=== PATIENT | female | born 1960 | race African-American/Black ===

== ENCOUNTER 2016-09-07 14:05 | Emergency (ER) | payer OTHER ==
--- NOTE | 2016-09-07 14:22 | ED Physician Documentation ---
General Adult - HISTORIAN Historian: patient - HPI Chief Complaint: General Adult Further Comments: yes (Yesenia has been having some behavioral issues today, has been incontinence, has complained of some abd pain, has had a low grade fever. has not been eating as well. Has a history of UTI in the past.) - ROS CONST: no problems. denies: fever, chills - PAST HX Past History: none, hypertension, other (ADHD, epilepsy, constipation, MR) Allergies/Adverse Reactions: Allergies Allergy/AdvReac Type Severity Reaction Status Date / Time No Known Allergies Allergy Verified 09/07/16 14:43 Home Medications: Ambulatory Orders Medication Instructions Recorded Dextrose/Dextrin/Maltose 09/07/16 [Insta-Glucose] Divalproex Sodium [Depakote ER] 500 mg PO BID 09/07/16 Docusate Sodium [Colace] 200 mg PO DAILY 09/07/16 Linaclotide [Linzess] 09/07/16 Magnesium Hydroxide [Milk of 2,400 mg PO BID 09/07/16 Magnesia] Metformin HCl [Glucophage] 500 mg PO BID 09/07/16 Polyethylene Glycol 3350 [Miralax] 17 gm PO BID 09/07/16 Quetiapine Fumarate [Seroquel] 400 mg PO BID 09/07/16 Risperidone [Risperdal] 2 mg PO BID 09/07/16 Topiramate [Topamax] 50 mg PO BID 09/07/16 - SOCIAL HX Smoking History: non-smoker Alcohol Use: none Drug Use: none - FAMILY HX Family History: No - VITAL SIGNS Vital Signs: Vital Signs Temp Pulse Resp BP Pulse Ox 43/20 11/30/14 20:30 - REVIEWED ASSESSMENTS Nursing Assessment Reviewed: Yes Vitals Reviewed: Yes ED Results Lab/Radiology - Orders Orders: ED Orders Category Date Time Status CBC/PLATELET/DIFF Routine Lab 09/07/16 Ordered CMP Routine Lab 09/07/16 Ordered URINALYSIS Routine Lab 09/07/16 Uncollected General Adult Physical Exam - PHYSICAL EXAM GENERAL APPEARANCE: no distress EENT: ENT inspection normal, no signs of dehydration RESPIRATORY: no resp distress, chest non-tender, breath sounds normal. No: wheezes, rales, rhonchi CVS: reg rate & rhythm, heart sounds normal, equal pulses, no gallop ABDOMEN: soft, no organomegaly, normal bowel sounds, no distension, non-tender. No: rebound, guarding SKIN: warm/dry EXTREMITIES: non-tender NEURO: mood/affect nml (at baseline per caregiver) Discharge Clincal Impression: Viral gastroenteritis Additional Instructions: Give patient diet as tolerated. IWatch for fever or chills. If symptoms do not improve to follow-up with primary care provider or return to ED. Home Medications: Ambulatory Orders Dextrose/Dextrin/Maltose [Insta-Glucose] 09/07/16 Divalproex Sodium [Depakote ER] 500 mg PO BID 09/07/16 Docusate Sodium [Colace] 200 mg PO DAILY 09/07/16 Linaclotide [Linzess] 09/07/16 Magnesium Hydroxide [Milk of Magnesia] 2,400 mg PO BID 09/07/16 Metformin HCl [Glucophage] 500 mg PO BID 09/07/16 Polyethylene Glycol 3350 [Miralax] 17 gm PO BID 09/07/16 Quetiapine Fumarate [Seroquel] 400 mg PO BID 09/07/16 Risperidone [Risperdal] 2 mg PO BID 09/07/16 Topiramate [Topamax] 50 mg PO BID 09/07/16 Condition: Stable Disposition: 01 HOME, SELF-CARE Decision to Admit: NO Date of Decison to Admit: 09/07/16 Decision Time: 15:42
[2016-09-07 14:29] VITALS: BP 100/79
[2016-09-07 15:06] LABS: BASOPHILS % 0.1 (0.0-1.5); EOSINOPHILS % 1.1 % (0.0-6.8); LYMPHOCYTES # 0.6 # k/uL (0.6-4.0); MONOCYTES # 0.9 # k/uL (0.0-0.9); MONOCYTES % 9.9 % (0.0-11.0)
[2016-09-07 15:25] LABS: eGFR (African) > 60; eGFR (Non-African) > 60
[2016-09-08 06:00] LABS: APPEARANCE,URINE CLEAR (CLEAR); COLOR,URINE YELLOW (YELLOW); OCCULT BLOOD,URINE NEGATIVE (NEGATIVE); UROBILINOGEN URINE 0.2 Eu (0.2-1.0)
== END 2016-09-07 16:05 | disposition home or self-care (01) ==
LOC: ED 14:05
DX: A08.4 Viral intestinal infection, unspecified (principal)
CPT/HCPCS: 80053; 81002; 82150; 85025; 99283

== ENCOUNTER 2016-11-17 07:39 | Outpatient (CLI) | payer OTHER ==
[2016-11-17 07:59] LABS: BASOPHILS % 0.2 (0.0-1.5); EOSINOPHILS % 0.9 % (0.0-6.8); MEAN CORPUSCULAR HEMOGLOBIN 31.9 pg (28.0-34.0); MEAN CORPUSCULAR VOLUME 96.1 fl (80.0-100.0); NEUTROPHILS # 2.2 # k/uL (1.4-7.7)
[2016-11-17 08:31] LABS: eGFR (African) > 60; eGFR (Non-African) > 60
[2016-11-18 08:52] LABS: APPEARANCE,URINE CLEAR (CLEAR); COLOR,URINE YELLOW (YELLOW); OCCULT BLOOD,URINE NEGATIVE (NEGATIVE); PH URINE 7.5 (5.0 - 8.0); UROBILINOGEN URINE 0.2 Eu (0.2-1.0)
== END 2016-11-17 07:40 ==
LOC: LAB 07:39
PROVIDERS: ATTEND Nurse Practitioner Family
DX: G40.909 Epilepsy, unspecified, not intractable, without status epilepticus (principal); I10 Essential (primary) hypertension; E11.65 Type 2 diabetes mellitus with hyperglycemia
CPT/HCPCS: 36415; 80053; 80164; 81002; 82043; 83036; 85025

== ENCOUNTER 2016-12-31 14:09 | Outpatient (CLI) | payer OTHER | END 2016-12-31 14:10 | LOC: POD 14:09 | PROVIDERS: ATTEND Podiatrist | DX: B35.1 Tinea unguium (principal); M79.674 Pain in right toe(s); M79.675 Pain in left toe(s) | CPT/HCPCS: 11721; G0463 ==

== ENCOUNTER 2017-02-16 07:40 | Outpatient (CLI) | payer OTHER | END 2017-02-16 07:42 | LOC: LAB 07:40 | PROVIDERS: ATTEND Psychiatry & Neurology Psychiatry | DX: F25.1 Schizoaffective disorder, depressive type (principal) | CPT/HCPCS: 36415; 80164 ==

== ENCOUNTER 2017-03-23 07:30 | Outpatient (CLI) | payer OTHER ==
[2017-03-23 07:23] LABS: BASOPHILS % 0.3 (0.0-1.5); EOSINOPHILS % 2.6 % (0.0-6.8); MEAN CORPUSCULAR HEMOGLOBIN 32.2 pg (28.0-34.0); MEAN CORPUSCULAR VOLUME 92.1 fl (80.0-100.0); MONOCYTES % 7.4 % (0.0-11.0); NEUTROPHILS # 2.1 # k/uL (1.4-7.7)
[2017-03-23 07:52] LABS: eGFR (African) > 60; eGFR (Non-African) > 60
[2017-03-23 15:15] LABS: APPEARANCE,URINE Clear (CLEAR); COLOR,URINE Yellow (YELLOW); OCCULT BLOOD,URINE Negative (NEGATIVE); PH URINE 6.5 (5.0 - 8.0); UROBILINOGEN URINE 0.2 Eu (0.2-1.0)
[2017-03-23 15:26] LABS: AMORPHOUS SEDIMENT,UR FEW (NEGATIVE)
== END 2017-03-23 07:32 ==
LOC: LAB 07:30
PROVIDERS: ATTEND Nurse Practitioner Family
DX: E78.2 Mixed hyperlipidemia (principal); E11.65 Type 2 diabetes mellitus with hyperglycemia; I10 Essential (primary) hypertension; G40.409 Other generalized epilepsy and epileptic syndromes, not intractable, without status epilepticus
CPT/HCPCS: 80053; 80061; 80164; 81002; 82043; 83036; 85025

== ENCOUNTER 2017-04-01 14:27 | Outpatient (CLI) | payer OTHER | END 2017-04-01 14:30 | LOC: POD 14:27 | PROVIDERS: ATTEND Podiatrist | DX: B35.1 Tinea unguium (principal); M79.674 Pain in right toe(s); M79.675 Pain in left toe(s) | CPT/HCPCS: 11721; G0463 ==

== ENCOUNTER 2017-04-08 07:28 | Outpatient (CLI) | payer OTHER ==
[2017-04-08 07:49] LABS: BASOPHILS % 0.8 (0.0-1.5); EOSINOPHILS % 1.1 % (0.0-6.8); MEAN CORPUSCULAR HEMOGLOBIN 32.3 pg (28.0-34.0); MEAN CORPUSCULAR VOLUME 92.3 fl (80.0-100.0); MONOCYTES % 6.3 % (0.0-11.0); NEUTROPHILS # 2.4 # k/uL (1.4-7.7)
[2017-04-08 08:33] LABS: eGFR (African) > 60; eGFR (Non-African) > 60
== END 2017-04-08 07:30 ==
LOC: LAB 07:28
PROVIDERS: ATTEND Nurse Practitioner Family
DX: R94.5 Abnormal results of liver function studies (principal); D69.6 Thrombocytopenia, unspecified
CPT/HCPCS: 36415; 80053; 85025

== ENCOUNTER 2017-04-22 07:36 | Outpatient (CLI) | payer OTHER ==
[2017-04-22 08:07] LABS: BASOPHILS % 0.8 (0.0-1.5); EOSINOPHILS % 0.6 % (0.0-6.8); MEAN CORPUSCULAR VOLUME 92.8 fl (80.0-100.0); MONOCYTES % 6.6 % (0.0-11.0)
[2017-04-22 08:30] LABS: eGFR (African) > 60; eGFR (Non-African) > 60
== END 2017-04-22 07:37 ==
LOC: LAB 07:36
PROVIDERS: ATTEND Nurse Practitioner Family
DX: D69.6 Thrombocytopenia, unspecified (principal); R94.5 Abnormal results of liver function studies
CPT/HCPCS: 36415; 80053; 85025

== ENCOUNTER 2017-05-03 07:30 | Outpatient (CLI) | payer OTHER ==
[2017-05-03 08:26] LABS: BASOPHILS % 0.9 (0.0-1.5); EOSINOPHILS % 1.1 % (0.0-6.8); MEAN CORPUSCULAR HEMOGLOBIN 31.2 pg (28.0-34.0); MEAN CORPUSCULAR VOLUME 94.1 fl (80.0-100.0); MONOCYTES % 6.3 % (0.0-11.0); NEUTROPHILS # 2.7 # k/uL (1.4-7.7)
== END 2017-05-03 07:32 ==
LOC: LAB 07:30
PROVIDERS: ATTEND Nurse Practitioner Family
DX: D69.6 Thrombocytopenia, unspecified (principal)
CPT/HCPCS: 36415; 85025

== ENCOUNTER 2017-06-23 07:29 | Outpatient (CLI) | payer OTHER ==
[2017-06-24 08:51] LABS: BASOPHILS % 0.3 (0.0-1.5); EOSINOPHILS % 0.6 % (0.0-6.8); MEAN CORPUSCULAR HEMOGLOBIN 32.3 pg (28.0-34.0); MEAN CORPUSCULAR VOLUME 95.3 fl (80.0-100.0); MONOCYTES % 8.5 % (0.0-11.0); NEUTROPHILS # 1.2 # k/uL (1.4-7.7)
[2017-06-24 09:22] LABS: eGFR (African) > 60; eGFR (Non-African) > 60
[2017-06-24 14:50] LABS: APPEARANCE,URINE Clear (CLEAR); COLOR,URINE Yellow (YELLOW); OCCULT BLOOD,URINE Trace-intact (NEGATIVE)
== END 2017-06-23 07:30 ==
LOC: LAB 07:29
PROVIDERS: ATTEND Nurse Practitioner Family
DX: R53.83 Other fatigue (principal); E11.65 Type 2 diabetes mellitus with hyperglycemia; E78.2 Mixed hyperlipidemia; I10 Essential (primary) hypertension
CPT/HCPCS: 36415; 80053; 80061; 80164; 81002; 82043; 83036; 84439; 84443; 85025

== ENCOUNTER 2017-07-01 14:14 | Outpatient (CLI) | payer OTHER | END 2017-07-01 14:15 | LOC: POD 14:14 | PROVIDERS: ATTEND Podiatrist | DX: B35.1 Tinea unguium (principal); M79.674 Pain in right toe(s); M79.675 Pain in left toe(s) | CPT/HCPCS: 11721; G0463 ==

== ENCOUNTER 2017-07-11 07:27 | Outpatient (CLI) | payer OTHER ==
[2017-07-11 07:57] LABS: BASOPHILS % 0.3 (0.0-1.5); EOSINOPHILS % 0.8 % (0.0-6.8); MEAN CORPUSCULAR HEMOGLOBIN 33.5 pg (28.0-34.0); MONOCYTES % 7.8 % (0.0-11.0); NEUTROPHILS # 2.6 # k/uL (1.4-7.7)
== END 2017-07-11 07:30 ==
LOC: LAB 07:27
PROVIDERS: ATTEND Nurse Practitioner Family
DX: D69.6 Thrombocytopenia, unspecified (principal)
CPT/HCPCS: 36415; 85025

== ENCOUNTER 2017-07-26 14:21 | Outpatient (CLI) | payer OTHER ==
[2017-07-26 15:17] LABS: BASOPHILS % 0.4 (0.0-1.5); EOSINOPHILS % 0.7 % (0.0-6.8); MEAN CORPUSCULAR HEMOGLOBIN 33.2 pg (28.0-34.0); MEAN CORPUSCULAR VOLUME 98.2 fl (80.0-100.0); MONOCYTES % 7.5 % (0.0-11.0); NEUTROPHILS # 2.2 # k/uL (1.4-7.7)
== END 2017-07-26 14:22 ==
LOC: LAB 14:21
PROVIDERS: ATTEND Nurse Practitioner Family
DX: D69.6 Thrombocytopenia, unspecified (principal)
CPT/HCPCS: 36415; 85025

== ENCOUNTER 2017-08-09 12:16 | Emergency (ER) | payer OTHER ==
--- NOTE | 2017-08-09 12:21 | ED Physician Documentation ---
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 Fall was not witnessed. No known precipitating cause noted. No previous history of falls. Patient developed a hematoma to the right cheek area and staff brings patient in to be evaluated. When the nurse tried to assess her she became agitated. But when I went in she was fairly cooperative but not staying still. She did become upset easily. Onset: just prior to arrival Where: home ([facility]) Timing: still present Context: fall, direct blow Severity: mild Loss of Consciousness: unsure (no known LOC) - ROS CONST: no problems. denies: fever, chills - PAST HX Past History: none, diabetes Type 2, other (MR with agitation, HTN) Allergies/Adverse Reactions: Allergies Allergy/AdvReac Type Severity Reaction Status Date / Time No Known Allergies Allergy Verified 08/09/17 12:36 Home Medications: Ambulatory Orders Medication Instructions Recorded Dextrose/Dextrin/Maltose 09/07/16 [Insta-Glucose] Divalproex Sodium [Depakote ER] 500 mg PO BID 09/07/16 Docusate Sodium [Colace] 200 mg PO DAILY 09/07/16 Linaclotide [Linzess] 09/07/16 Magnesium Hydroxide [Milk of 2,400 mg PO BID 09/07/16 Magnesia] Metformin HCl [Glucophage] 500 mg PO BID 09/07/16 Polyethylene Glycol 3350 [Miralax] 17 gm PO BID 09/07/16 Quetiapine Fumarate [Seroquel] 400 mg PO BID 09/07/16 Risperidone [Risperdal] 2 mg PO BID 09/07/16 Topiramate [Topamax] 50 mg PO BID 09/07/16 - SOCIAL HX Smoking History: non-smoker Alcohol Use: none Drug Use: none - FAMILY HX Family History: none - VITAL SIGNS Vital Signs: Vital Signs Temp Pulse Resp BP Pulse Ox 97.6 F 107 H 100/79 08/09/17 12:16 08/09/17 12:16 09/07/16 16:05 - REVIEWED ASSESSMENTS Nursing Assessment Reviewed: Yes Vitals Reviewed: Yes Progress - Progress Progress: Because of patient's mental status it appeared that she would not stay still enough to get a CT scan of the facial bones. Facial x-ray were obtained. ED Results Lab/Radiology - Radiology Radiology Impressions: Examination: Plain film facial History: Trauma Findings: 4 views of the facial bones demonstrates normal cortical margins. No fracture or dislocation. No soft tissue swelling. No joint effusion. Absent dentition. Impression: No fracture by film sensitivity. - Orders Orders: ED Orders Category Date Time Status FACIAL BONES 3 VIEWS OR MORE [RAD] Stat Exams 08/09/17 Completed Head Injury Physical Exam - Physical Exam General Appearance: no acute distress Head: trauma (swelling to the right facial ) Neck: non-tender, painless ROM, trachea midline Nexus Criteria: altered mental status (appears to be at baseline for patient) Eyes: ISABELA, EOMI ENT: nml external inspection, pharynx nml, clotted nasal blood (mild bloody drainage from the left nares), ears nml. No: dental injury, malocclusion Neuro: alert (at baseline), cooperative (aggitated at times), interactive. No: mood/affect nml (at baseline) Cranial: nml as tested, no evidence of acute CVA Cerebellar: No: nml gait (at baseline) Sensorimotor: motor nml, sensation nml Resp/CVS: chest non-tender, breath sounds nml, heart sounds nml, no resp. distress, lungs clear, reg. rate & rhythm. No: ecchymosis Abdomen: non-tender Back: non-tender Skin: other (large hematoma to the right cheek area, no bony abnl palpable) Extremities: atraumatic, nml ROM (Patient moves all extremities well) - [place] Coma Score Coma Scale Eye Opening: Spontaneous Coma Scale Verbal: Confused Coma Scale Motor: Obeys Commands Discharge Clincal Impression: Contusion of face, Mental retardation Referrals: Tran Todd PRN [Primary Care Provider] - 2 Days Additional Instructions: Follow instruction sheet for head injury. If possible apply a cool compress to the area of contusion. Give patient some Tylenol or Ibuprofen as needed for pain. Watch for any new development of weakness, numbness to an are or leg, swallowing difficulties, change in speech, unequal pupils, change in mental status. If you have any questions call or bring patient back to the hospital. Condition: Stable Disposition: 01 HOME, SELF-CARE Decision to Admit: NO Date of Decison to Admit: 08/09/17 Decision Time: 13:15
--- NOTE | 2017-08-09 13:10 | Diagnostic Imaging Report ---
SARAH CHAVIRA [facility] [address] [facility] [address] 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 No fracture or dislocation. No soft tissue swelling. No joint effusion. Absent dentition. Impression: No fracture by film sensitivity. Electronically signed on Aug 09, 2017 1:08:50 PM UPHOLSTERY RESTORER by: Barry KENDALL
== END 2017-08-09 13:27 | disposition home or self-care (01) ==
LOC: ED 12:16
DX: S00.83XA Contusion of other part of head, initial encounter (principal); W19.XXXA Unspecified fall, initial encounter
CPT/HCPCS: 70150; 99282

== ENCOUNTER 2017-09-06 07:34 | Outpatient (CLI) | payer OTHER ==
--- NOTE | 2017-09-06 09:23 | Diagnostic Imaging Report ---
MAGDIEL GARG (TORCH BRAZER) - OP [facility] [address] [facility] [address] Report Submission Date: Sep 06, 2017 8:21:40 AM RAILROADER Patient Study Name: SUNNY DELGADO Date: Sep 06, 2017 7:42:53 AM RAILROADER Modality Type: CR Gender: F Description: CHEST : 60 Institution: [facility] Physician: MAGDIEL GARG (JENN) - OP Examination: PA and lateral chest. History: Evaluate lung murdock. POSITIVE PPD (Hx) / POSITIVE PPD (DICOM Hx) / POSITIVE PPD (Pt comments) Comparison exam: None provided. Findings: PA lateral chest demonstrate a normal cardiac and mediastinal silhouette. No focal infiltrate. No blunting of the costophrenic margins. No apical scarring. Osseous structures are appropriate for age. Impression: No acute appearing pulmonary process. No evidence for active tuberculosis by plain film sensitivity. Electronically signed on Sep 06, 2017 8:21:40 AM RAILROADER by: Barry KENDALL
== END 2017-09-06 07:35 ==
LOC: LAB 07:34
PROVIDERS: ATTEND Nurse Practitioner Family
DX: R76.11 Nonspecific reaction to tuberculin skin test without active tuberculosis (principal)
CPT/HCPCS: 36415; 71046; 86480

== ENCOUNTER 2017-10-11 12:44 | Outpatient (CLI) | payer OTHER | END 2017-10-11 12:45 | LOC: POD 12:44 | PROVIDERS: ATTEND Podiatrist | DX: B35.1 Tinea unguium (principal); M79.674 Pain in right toe(s); M79.675 Pain in left toe(s) | CPT/HCPCS: 11721; G0463 ==

== ENCOUNTER 2018-01-13 13:08 | Outpatient (CLI) | payer OTHER | END 2018-01-13 13:49 | LOC: POD 13:08 | PROVIDERS: ATTEND Podiatrist | DX: B35.1 Tinea unguium (principal); M79.674 Pain in right toe(s); M79.675 Pain in left toe(s) | CPT/HCPCS: 11721; G0463 ==

== ENCOUNTER → 2018-03-02 | Outpatient (CLI) | payer OTHER ==
[2018-03-02 11:17] LABS: BASOPHILS % 0.5 (0.0-1.5); EOSINOPHILS % 0.5 % (0.0-6.8); MEAN CORPUSCULAR VOLUME 99.3 fl (80.0-100.0); MONOCYTES % 7.1 % (0.0-11.0); NEUTROPHILS # 2.7 # k/uL (1.4-7.7)
[2018-03-02 17:11] LABS: TOTAL PROTEIN 6.2 g/dL (6.0-8.5)
[2018-03-03 15:29] LABS: APPEARANCE,URINE CLEAR (CLEAR); COLOR,URINE YELLOW (YELLOW); OCCULT BLOOD,URINE NEGATIVE (NEGATIVE); UROBILINOGEN URINE 0.2 Eu (0.2-1.0)
== END ==
LOC: LAB 10:43
PROVIDERS: ATTEND Nurse Practitioner Family
DX: E11.9 Type 2 diabetes mellitus without complications (principal); I10 Essential (primary) hypertension; I48.91 Unspecified atrial fibrillation
CPT/HCPCS: 36415; 80053; 80164; 81002; 83036; 84443; 85025

== ENCOUNTER 2019-01-05 08:37 | Outpatient (CLI) | payer OTHER ==
[2019-01-17 14:27] LABS: APPEARANCE,URINE CLEAR (CLEAR); COLOR,URINE YELLOW (YELLOW); OCCULT BLOOD,URINE NEGATIVE (NEGATIVE); PH URINE 7.5 (5.0 - 8.0)
== END 2019-01-05 08:42 | disposition home or self-care (01) ==
LOC: LAB 08:37
PROVIDERS: ATTEND Nurse Practitioner Family
DX: Z01.30 Encounter for examination of blood pressure without abnormal findings (principal); I10 Essential (primary) hypertension; E78.2 Mixed hyperlipidemia; E11.65 Type 2 diabetes mellitus with hyperglycemia; Z86.11 Personal history of tuberculosis
CPT/HCPCS: 36415; 71020; 81002; 82043; 83036; 87086

== ENCOUNTER 2019-04-13 09:33 | Outpatient (CLI) | payer OTHER ==
[2019-04-13 11:26] LABS: HDL 43 mg/dL (>40); eGFR (Non-African) > 60
[2019-04-17 07:26] LABS: A1C 6.3 % (<5.7)
== END 2019-04-13 09:35 ==
LOC: LAB 09:33
PROVIDERS: ATTEND Nurse Practitioner Family
DX: E78.2 Mixed hyperlipidemia (principal); I10 Essential (primary) hypertension; E11.65 Type 2 diabetes mellitus with hyperglycemia; R53.83 Other fatigue; G40.009 Localization-related (focal) (partial) idiopathic epilepsy and epileptic syndromes with seizures of localized onset, not intractable, without status epilepticus
CPT/HCPCS: 36415; 80053; 80061; 80164; 83036; 84439; 84443; 85025

== ENCOUNTER 2019-04-30 08:51 | Outpatient (CLI) | payer OTHER ==
[2019-05-10 08:56] LABS: BASOPHILS % 0.7 % (0.0-1.5); NEUTROPHILS # 2.8 # k/uL (1.4-7.7)
[2019-05-10 10:02] LABS: NEUTROPHILS # 4.1 # k/uL (1.4-7.7)
[2019-05-10 10:03] LABS: APPEARANCE,URINE CLEAR (CLEAR); COLOR,URINE YELLOW (YELLOW); OCCULT BLOOD,URINE NEGATIVE (NEGATIVE); PH URINE 6.5 (5.0 - 8.0); UROBILINOGEN URINE 0.2 Eu (0.2-1.0)
== END 2019-04-30 09:10 ==
LOC: LAB 08:51
PROVIDERS: ATTEND Nurse Practitioner Family
DX: E11.65 Type 2 diabetes mellitus with hyperglycemia (principal); R30.0 Dysuria
CPT/HCPCS: 36415; 81002; 85025; 87086; 87186

== ENCOUNTER 2019-06-04 11:09 | Outpatient (CLI) | payer OTHER ==
--- NOTE | 2019-06-04 12:08 | Diagnostic Imaging Report ---
PATIENT MR#: [id number] PATIENT PATIENT NAME: CANDACE DELGADO DATE OF : 1960 REFERRING PHYSICIAN: KASHMIR MACHADO EXAM DATE: 06/04/2019 ACCESSION NUMBER: [id number] EXAM DESCRIPTION: FOOT 3 VIEWS OR MORE CLINICAL HISTORY: RIGHT FOOT PAIN AND SWELLING COMPARISON: No study for comparison is available at the time of interpretation. TECHNIQUE: DX right foot, 3 views Osseous structures: The osseous structures are normal with no evidence of fracture or dislocation. Sm all plantar calcaneal spur at the plantar fascia insertion, which may predispose to plantar fasciitis. Joint spaces: The bones are well aligned. No articular surface abnormality is noted. Soft tissues: There is a moderate swelling of the soft tissues of the foot, more prominently dorsal t o the metatarsals. IMPRESSION: 1. Moderate soft tissue edema, without underlying bone lesions or fracture. Correlate clinically for other etiologies of soft tissue edema such as cellulitis and venous obstruction. 2. Plantar calcaneal spur at the plantar fascia insertion, which may predispose to plantar fasciitis. Read by: Dr. Daron Aleman Transcribed by: Daron Aleman Transcribed Date: 06/04/2019 12:06:33 PM Electronically signed by: Dr. Daron Aleman Date signed: 06/04/2019 12:06:34 PM
== END 2019-06-04 11:19 ==
LOC: RAD 11:09
PROVIDERS: ATTEND Podiatrist Foot & Ankle Surgery
DX: M79.671 Pain in right foot (principal)
CPT/HCPCS: 73630

== ENCOUNTER 2019-07-23 09:37 | Outpatient (CLI) | payer OTHER | END 2019-07-23 09:42 | LOC: RAD 09:37 → LAB 09:42 | PROVIDERS: ATTEND Podiatrist Foot & Ankle Surgery | DX: M10.9 Gout, unspecified (principal) | CPT/HCPCS: 36415; 84550 ==